=== PATIENT | male | born 1990 | race Two or more races ===

== ENCOUNTER 2019-03-04 19:25 | Emergency (ER) | payer MEDICAID ==
[~2019-03-04] VITALS: Ht 165.1 cm; Wt 84.0 kg
[2019-03-04 21:20] LABS: CLARITY URINE CLEAR (CLEAR); COLOR URINE YELLOW (YELLOW); KETONES URINE NEGATIVE (NEGATIVE); LEUKOCYTE ESTERASE URINE NEGATIVE (NEGATIVE); NITRITE URINE NEGATIVE (NEGATIVE); OCCULT BLOOD URINE NEGATIVE (NEGATIVE); PH URINE 5.5 (4.5-8.0); PROTEIN URINE NEGATIVE (NEGATIVE); SPECIFIC GRAVITY URINE 1.013 (1.005-1.030); UROBILINOGEN URINE 0.2 E.U./dL (0.2-1.0)
[2019-03-04] MEDS ORDERED: VALACYCLOVIR HCL 500MG TABLET PO SCH (22:00)
[2019-03-04 22:05] VITALS: BP 128/97
== END 2019-03-04 22:05 | disposition home or self-care (01) ==
LOC: ER 21:41
DX: B02.9 Zoster without complications (principal); F12.10 Cannabis abuse, uncomplicated
CPT/HCPCS: 81003; 99283; Z7610

== ENCOUNTER 2019-10-31 21:12 | Emergency (ER) | payer MEDICAID ==
[~2019-10-31] VITALS: Ht 162.6 cm; Wt 85.8 kg
[2019-10-31 21:19] VITALS: BP 144/90
[2019-10-31] MEDS ORDERED: ASPIRIN 81MG TABLET PO ONE (22:15)
[2019-10-31] MEDS ORDERED: MAGNESIUM/ALUMINUM HYDROXIDE/SIMETHICONE 30ML UDC PO ONE (22:15)
[2019-10-31] MEDS ORDERED: FAMOTIDINE 20MG TABLET PO SCH (22:15)
[2019-10-31 22:45] LABS: BASOPHILS % 0.4 % (0.0-2.0); HEMATOCRIT. 43.2 % (42.0-52.0); HEMOGLOBIN. 14.9 g/dL (14.0-18.0); LYMPHOCYTES % 26.9 % (20.0-50.0); MEAN CORPUSCULAR HEMOGLOBIN 30.3 pg (28.0-32.0); MEAN CORPUSCULAR VOLUME 87.9 fL (80.0-94.0); MEAN PLATELET VOLUME 7.9 fl (7.4-10.4); MONOCYTES % 8.9 % (2.0-8.0); NEUTROPHILS % 62.8 % (40.0-76.0); PLATELET 236 x1000/uL (130-400); RED BLOOD CELL COUNT 4.92 mill/uL (4.7-6.1)
[2019-10-31 22:47] LABS: CHLORIDE 108 mEq/L (98-107)
== END 2019-10-31 23:21 | disposition home or self-care (01) ==
LOC: ER 21:12
DX: R07.89 Other chest pain (principal); R10.13 Epigastric pain
CPT/HCPCS: 36415; 71045; 80053; 84484; 85025; 93005; 99285; Z7610